=== PATIENT | male | born 1945 | race Caucasian/White ===

== ENCOUNTER 2017-07-07 13:18 | Emergency (ER) | payer MEDICARE, OTHER ==
--- NOTE | 2017-07-07 14:04 | EDM.PDOC ---
ED HPI GENERAL MEDICAL PROBLEM - General Chief Complaint: Cardiovascular Problem Stated Complaint: SYNCOPE/HIGH BP Time Seen by Provider: 07/07/17 14:04 Source of Information: Reports: Patient - History of Present Illness INITIAL COMMENTS - FREE TEXT/NARRATIVE: Patient is here today accompanied by his , Kesha, for an episode of dizziness earlier today. Patient said that it has happened actually several times over the past 2 days where he feels like he is dizzy and off balance. He also feels like he is spinning but the room is not. He has had vertigo previously and did go through physical therapy for this. Patient checked his blood pressure at home and it was quite high at 174/95. He is not on any blood pressure medications, has been on these in the past but blood pressure has been fairly normal per his report since he has been off of them. Patient has a cardiac history of CA in the and he does have 2 stents. He is on aspirin daily but no longer on Plavix. Patient also has been noting congestion for the past several weeks. He denies feeling ill and denies any seasonal/environmental allergies. 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 Patient denies any dizziness currently but states he doesn't quite feel right. He denies any chest pain or shortness of breath. - Related Data Allergies Allergy/AdvReac Type Severity Reaction Status Date / Time ibuprofen AdvReac Abdominal Verified 12/05/13 11:02 Pain metronidazole [From Flagyl] AdvReac Vomiting Verified 12/05/13 11:02 Home Meds: Home Meds Allopurinol [Zyloprim] 100 mg PO DAILY 10/16/13 [History] atorvaSTATin [Lipitor] 40 mg PO DAILY 10/16/13 [History] Multivit-Min/FA/Lycopene/Lut [Centrum Silver Ultra Men's] 1 tab PO DAILY [History] Amoxicillin 875 mg PO BID #20 tab 07/07/17 [Rx] Aspirin [Halfprin] 81 mg PO DAILY 07/07/17 [History] Celecoxib [CeleBREX] 100 mg PO ASDIRECTED PRN 07/07/17 [History] Metoprolol Succinate [Toprol Xl] 25 mg PO DAILY #30 tab.er.24h 07/07/17 [Rx] Past Medical History Cardiovascular History: Reports: High Cholesterol, CA, Stents Musculoskeletal History: Reports: Arthritis, Gout Neurological History: Reports: Concussion - Past Surgical History Cardiovascular Surgical History: Reports: Coronary Artery Stent Other Cardiovascular Surgeries/Procedures: 2 stents GI Surgical History: Reports: Cholecystectomy Male Surgical History: Reports: Other (See Below) Other Male Surgeries/Procedures: had been on meds for prostate but feels he has no further issues Musculoskeletal Surgical History: Reports: Other (See Below) Other Musculoskeletal Surgeries/Procedures:: left shoulder arthroscopy- collar bone fracture Social & Family History - Tobacco Use Years of Tobacco use: 50 Used Tobacco, but Quit: Yes Month/Year Tobacco Last Used: MAY - Alcohol Use Days Per Week of Alcohol Use: 7 Number of Drinks Per Day: 4 Total Drinks Per Week: 28 - Recreational Drug Use Recreational Drug Use: No ED ROS GENERAL - Review of Systems Review Of Systems: See Below Constitutional: Reports: Weakness. Denies: Fever, Chills, Fatigue, Decreased Appetite HEENT: Reports: Other (Wears glasses and dentures.) Respiratory: Reports: No Symptoms Cardiovascular: Reports: Blood Pressure Problem, Lightheadedness. Denies: Chest Pain, Claudication, Dyspnea on Exertion, Edema, Syncope GI/Abdominal: Reports: No Symptoms Musculoskeletal: Reports: No Symptoms Skin: Reports: No Symptoms Neurological: Reports: Dizziness, Other (Feeling of off balance.). Denies: Headache, Numbness, Syncope, Trouble Speaking, Difficulty Walking, Weakness, Change in Speech, Gait Disturbance Psychiatric: Reports: No Symptoms Hematologic/Lymphatic: Reports: No Symptoms ED EXAM, GENERAL - Physical Exam Exam: See Below Exam Limited By: No Limitations General Appearance: Alert, WD/WN, No Apparent Distress Eye Exam: Bilateral Eye: Normal Inspection, PERRL Ears: Normal External Exam, Normal Canal, Normal TMs Nose: Normal Inspection, Nasal Drainage (Purulent), Other (Bilateral maxillary sinus tenderness) Throat/Mouth: Normal Inspection, Normal Oropharynx, Other (Clear postnasal drainage) Head: Atraumatic, Normocephalic Neck: Normal Inspection, Supple, Non-Tender, Full Range of Motion. No: Lymphadenopathy (L), Lymphadenopathy (R) Respiratory/Chest: No Respiratory Distress, Lungs Clear, Normal Breath Sounds, Chest Non-Tender Cardiovascular: Normal Peripheral Pulses, Regular Rate, Rhythm, No Murmur GI/Abdominal: Normal Bowel Sounds, Soft, Non-Tender Extremities: Normal Inspection, Normal Range of Motion, Non-Tender, No Pedal Edema Neurological: Alert, Oriented, CN II-XII Intact, Normal Cognition, Normal Gait, Normal Reflexes, No Motor/Sensory Deficits Psychiatric: Normal Affect, Normal Mood Skin Exam: Warm, Dry, Intact Lymphatic: No Adenopathy Course - Vital Signs Last Recorded V/S: Last Vital Signs Temp 98.0 F 07/07/17 13:54 Pulse 83 07/07/17 13:54 Resp 25 H 07/07/17 13:54 BP 181/99 H 07/07/17 13:54 Pulse Ox 96 07/07/17 13:54 - Orders/Labs/Meds Orders: Active Orders 24 hr Category Date Time Status EKG 12 Lead [EKG Documentation Completion] [RC] STAT Care 07/07/17 14:05 Active CXR [Chest 2V] [CR] Stat Exams 07/07/17 14:27 Taken UA W/MICROSCOPIC [URIN] Stat Lab 07/07/17 15:40 Results Labs: Laboratory Tests 07/07/17 07/07/17 07/07/17 Range/Units 14:40 14:40 15:40 WBC 8.30 (4.23-9.07) K/mm3 RBC 5.03 (4.63-6.08) M/mm3 Hgb 16.1 (13.7-17.5) gm/L Hct 46.8 (40.1-51.0) % MCV 93.0 H (79.0-92.2) fl MCH 32.0 (25.7-32.2) pg MCHC 34.4 (32.2-35.5) g/dl RDW Std Deviation 44.2 H (35.1-43.9) fL Plt Count 181 (163-337) K/mm3 MPV 9.1 L (9.4-12.3) fl Neutrophils % (Manual) 69 H (40-60) % Band Neutrophils % 0 (0-10) % Lymphocytes % (Manual) 20 (20-40) % Atypical Lymphs % 0 % Monocytes % (Manual) 9 (2-10) % Eosinophils % (Manual) 1 (0.8-7.0) % Basophils % (Manual) 1 (0.2-1.2) Platelet Estimate Adequate RBC Morph Comment Normal Sodium 139 (136-145) mEq/L Potassium 4.1 (3.5-5.1) mEq/L Chloride 104 (98-107) mEq/L Carbon Dioxide 27 (21-32) mEq/L Anion Gap 12.1 (5-15) BUN 11 (7-18) mg/dL Creatinine 0.7 (0.7-1.3) mg/dL Est Cr Clr Drug Dosing 93.64 mL/min Estimated GFR (MDRD) > 60 (>60) mL/min BUN/Creatinine Ratio 15.7 (14-18) Glucose 92 (83-115) mg/dL Calcium 9.0 (8.5-10.1) mg/dL Total Bilirubin 1.5 H (0.2-1.0) mg/dL AST 24 (15-37) U/L ALT 35 (16-63) U/L Alkaline Phosphatase 91 (46-116) U/L Troponin I < 0.017 (0.00-0.056) ng/mL C-Reactive Protein 4.6 H* (<1.0) mg/dL Total Protein 7.3 (6.4-8.2) g/dl Albumin 3.7 (3.4-5.0) g/dl Globulin 3.6 gm/dL Albumin/Globulin Ratio 1.0 (1-2) TSH 3rd Generation 1.900 (0.358-3.74) uIU/mL Urine Color Yellow (Yellow) Urine Appearance Clear (Clear) Urine pH 6.0 (5.0-8.0) Ur Specific [place] 1.025 (1.005-1.030) Urine Protein Negative (Negative) Urine Glucose (UA) Negative (Negative) Urine Ketones 1+ H (Negative) Urine Occult Blood Negative (Negative) Urine Nitrite Negative (Negative) Urine Bilirubin Negative (Negative) Urine Urobilinogen 1.0 (0.2-1.0) Ur Leukocyte Esterase Negative (Negative) - Re-Assessments/Exams Free Text/Narrative Re-Assessment/Exam: Patient is currently asymptomatic, denies any dizziness or chest pain. EKG demonstrates normal sinus rhythm. Chest x-ray is unremarkable, official report is pending. WBC 8300 with 69% and she feels and no bands. CRP is 4.6 and I suspect this is due to a sinusitis. Troponin is negative. TSH 1.90. Will treat patient sinusitis with amoxicillin. Will also have him resume his metoprolol 25 mg daily. For his episodes of vertigo will have him try the home half somersault maneuver , this continues he will discuss with PCP about returning to physical therapy again. Patient will follow up with his PCP within a week or certainly return to the emergency room if needed. 07/07/17 16:22 07/07/17 16:27 Departure - Departure Time of Disposition: 16:24 Disposition: Home, Self-Care 01 Condition: Good Clinical Impression: History of CA (myocardial infarction), Vertigo Sinusitis Qualifiers: Sinusitis location: maxillary Chronicity: acute Recurrence: non-recurrent Qualified Code(s): J01.00 - Acute maxillary sinusitis, unspecified Hypertension Qualifiers: Hypertension type: essential hypertension Qualified Code(s): I10 - Essential ( primary) hypertension Prescriptions: Amoxicillin 875 mg PO BID #20 tab Metoprolol Succinate [Toprol Xl] 25 mg PO DAILY #30 tab.er.24h Referrals: Fernandez Canada MD [Primary Care Provider] - Forms: ED Department Discharge Additional Instructions: Emergency room workup of your heart was normal. Your heart enzymes and EKG were normal. With her elevated blood pressure and history of heart disease and recommend that he resume her metoprolol daily. Will treat her sinusitis with amoxicillin, I recommend you take a probiotic or yogurt daily with this to prevent diarrhea. You need to increase her fluid intake. If you have episodes of vertigo, you can try the half somersault maneuver handout given. Follow-up with her primary care provider or certainly return to the emergency room if needed. - My Orders Last 24 Hours: My Active Orders 07/07/17 14:05 EKG 12 Lead [EKG Documentation Completion] [RC] STAT 07/07/17 14:27 CXR [Chest 2V] [CR] Stat 07/07/17 15:40 UA W/MICROSCOPIC [URIN] Stat - Assessment/Plan Last 24 Hours: My Active Orders 07/07/17 14:05 EKG 12 Lead [EKG Documentation Completion] [RC] STAT 07/07/17 14:27 CXR [Chest 2V] [CR] Stat 07/07/17 15:40 UA W/MICROSCOPIC [URIN] Stat
[2017-07-07 17:18] VITALS: BP 160/105
--- NOTE | 2017-07-09 16:54 | CR ---
Chest: Two views of the chest were obtained. Comparison: No prior chest x-ray. Heart size is normal. Mild tortuosity of the thoracic aorta is seen. Nodule is noted within the right mid lung compatible with granuloma. Lungs otherwise are clear. Degenerative change is noted within the thoracic spine with minimal scoliosis. Surgical clips are seen within the upper abdomen. Impression: 1. Incidental findings. Nothing acute is appreciated. Diagnostic code #2
== END 2017-07-07 16:30 | disposition home or self-care (01) ==
LOC: JD.ED 13:18
DX: R42 Dizziness and giddiness (principal); J01.00 Acute maxillary sinusitis, unspecified; I25.2 Old myocardial infarction; E78.00 Pure hypercholesterolemia, unspecified; Z95.5 Presence of coronary angioplasty implant and graft; Z87.891 Personal history of nicotine dependence; Z79.82 Long term (current) use of aspirin; Z79.899 Other long term (current) drug therapy; Z88.1 Allergy status to other antibiotic agents; Z88.6 Allergy status to analgesic agent
CPT/HCPCS: 36415; 71046; 71046-26; 80053; 81001; 84443; 84484; 85025; 86140; 93005; 99284-25

== ENCOUNTER 2021-06-13 18:33 | Emergency (ER) | payer MEDICARE, OTHER ==
[2021-06-13 21:04] VITALS: BP 165/94; PULSE 70
== END 2021-06-13 21:03 | disposition home or self-care (01) ==
LOC: JD.ED 18:33
DX: S09.90XA Unspecified injury of head, initial encounter (principal); I25.10 Atherosclerotic heart disease of native coronary artery without angina pectoris; E78.00 Pure hypercholesterolemia, unspecified; I10 Essential (primary) hypertension; I25.2 Old myocardial infarction; M10.9 Gout, unspecified; M19.90 Unspecified osteoarthritis, unspecified site; Z88.8 Allergy status to other drugs, medicaments and biological substances; Z79.82 Long term (current) use of aspirin; Z79.899 Other long term (current) drug therapy; Z72.0 Tobacco use; W01.198A Fall on same level from slipping, tripping and stumbling with subsequent striking against other object, initial encounter
CPT/HCPCS: 70450; 70450-26; 99283-25

== ENCOUNTER 2021-10-02 11:24 | Emergency (ER) | payer MEDICARE, OTHER ==
[2021-10-02 11:54] VITALS: BP 161/101; PULSE 96
[2021-10-02] MEDS ORDERED: Aspirin 81 MG Tab.Chew PO ONE (12:00)
[2021-10-02] MEDS ORDERED: Sodium Chloride 0.9% 10 ML Syringe FLUSH PRN ×2 (12:00→13:17)
[2021-10-02 12:29] LABS: ESTIMATED GFR > 60 mL/min (>60)
[2021-10-02] MEDS ORDERED: Iopamidol 755 Mg/ML 100 ML Bottle IVPUSH ONE (13:17)
[2021-10-02] MEDS ORDERED: Sodium Chloride 0.9% 45 ML IV SCH (13:30)
== END 2021-10-02 14:38 | disposition home or self-care (01) ==
LOC: JD.ED 11:24
DX: R07.9 Chest pain, unspecified (principal); I25.10 Atherosclerotic heart disease of native coronary artery without angina pectoris; I25.2 Old myocardial infarction; E78.00 Pure hypercholesterolemia, unspecified; I10 Essential (primary) hypertension; F17.210 Nicotine dependence, cigarettes, uncomplicated; Z90.49 Acquired absence of other specified parts of digestive tract; Z88.1 Allergy status to other antibiotic agents; Z88.6 Allergy status to analgesic agent
CPT/HCPCS: 36415; 71045; 71275; 80053; 83735; 84484; 85025; 85379; 86140; 93005; 99285; A9270; J3490; Q9967

== ENCOUNTER 2022-09-16 11:17 | Emergency (ER) | payer MEDICARE, OTHER ==
[2022-09-16] MEDS ORDERED: Diphtheria,Pertussis(Acell),Tetanus Vaccine 0.5 ML Syringe IM ONE (13:25)
[2022-09-16 15:10] VITALS: BP 144/79; PULSE 80
== END 2022-09-16 13:35 | disposition home or self-care (01) ==
LOC: JD.ED 11:17
DX: S02.2XXA Fracture of nasal bones, initial encounter for closed fracture (principal); S16.1XXA Strain of muscle, fascia and tendon at neck level, initial encounter; S00.81XA Abrasion of other part of head, initial encounter; I25.10 Atherosclerotic heart disease of native coronary artery without angina pectoris; I10 Essential (primary) hypertension; I25.2 Old myocardial infarction; N40.0 Benign prostatic hyperplasia without lower urinary tract symptoms; M10.9 Gout, unspecified; Z88.8 Allergy status to other drugs, medicaments and biological substances; Z79.82 Long term (current) use of aspirin; Z79.899 Other long term (current) drug therapy; Z23 Encounter for immunization; W18.30XA Fall on same level, unspecified, initial encounter
CPT/HCPCS: 70450; 70450-26; 70486; 70486-26; 72125; 72125-26; 90471; 90715; 99283-25